=== PATIENT | female | born 1980 | race Caucasian/White ===

== ENCOUNTER 2017-02-26 10:57 | Emergency (ER) | payer OTHER ==
[2017-02-26 13:40] VITALS: BP 125/78
--- NOTE | 2017-02-26 14:28 | UC ---
Complaint Female HPI - HPI Summary HPI Summary: pt c/o of painful urination and pain with sexual intercourse. Pt is 11 weeks . Pt denies any vaginal bleeding, pelvic cramping, discharge or unusual odor. - History Of Current Complaint Chief Complaint: UCGU Stated Complaint: URINARY Time Seen by Provider: 02/26/17 13:55 Hx Obtained From: Patient Hx Last Menstrual Period: 08/17/16 ?: Yes Onset/Duration: Sudden Onset Timing: Intermittent Severity Initially: Mild Severity Currently: None Pain Intensity: 3 Pain Scale Used: 0-10 Numeric Character: Dull, Burning Aggravating Factor(s): [place], Urination Associated Signs And Symptoms: Positive: Negative - Allergies/Home Medications Allergies/Adverse Reactions: Allergies Allergy/AdvReac Type Severity Reaction Status Date / Time No Known Allergies Allergy Verified 02/26/17 13:40 Home Medications: Home Medications Famotidine TAB* [Pepcid 20 MG TAB*] 20 mg PO BID 02/26/17 [History Confirmed 08/06] Vit W/ Ferrous Fumara [ Complete 14-0.4 mg] 1 tab PO BEDTIME [History Confirmed 02/26/17] PMH/Surg Hx/FS Hx/Imm Hx Previously Healthy: Yes Endocrine History Of: Denies: Diabetes Cardiovascular History Of: Denies: Cardiac Disorders Respiratory History Of: Denies: Asthma GI/ History Of: Reports: Gastroesophageal Reflux Psychological History Of: Reports: Anxiety - Surgical History Surgical History: None - Family History Known Family History: Positive: Cardiac Disease Family History: no family history of clotting disorders, or DVT - Social History Alcohol Use: None Substance Use Type: None Smoking Status (MU): Heavy Every Day Tobacco Smoker Type: Cigarettes Amount Used/How Often: 1/2 PPD Length of Time of Smoking/Using Tobacco: 22 Years Have You Smoked in the Last Year: Yes Household Exposure Type: Cigarettes - Immunization History Most Recent Influenza Vaccination: none Hx Tetanus, Diphtheria Vaccination: Yes Vaccination Up to Date: Yes Review of Systems Constitutional: Negative Skin: Negative Eyes: Negative ENT: Negative Respiratory: Negative Cardiovascular: Negative Gastrointestinal: Negative Genitourinary: Dysuria Motor: Negative Neurovascular: Negative Musculoskeletal: Negative Neurological: Negative Psychological: Negative All Other Systems Reviewed And Are Negative: Yes Physical Exam Triage Information Reviewed: Yes Appearance: Well-Appearing Vital Signs: Initial Vital Signs Temp 98.6 F 02/26/17 13:33 Pulse 88 02/26/17 13:33 Resp 18 02/26/17 13:33 BP 125/78 02/26/17 13:33 Pulse Ox 100 02/26/17 13:33 Eye Exam: Normal ENT Exam: Normal Respiratory Exam: Normal Cardiovascular Exam: Normal Abdominal Exam: Normal Musculoskeletal Exam: Normal Neurological Exam: Normal Psychological Exam: Normal Skin Exam: Normal Complaint Female Dx - Differential Dx/Diagnosis Differential Diagnosis/HQI/PQRI: Sexually Transmitted Disease, Urinary Tract Infection Provider Diagnoses: dysuria Discharge - Discharge Plan Condition: Stable Disposition: HOME Patient Education Materials: Dysuria (ED) Referrals: Marlyn Driver MD [Primary Care Provider] - If Needed (Please follow up with your PCP or return to clinic as needed)
== END 2017-02-26 14:14 | disposition home or self-care (01) ==
LOC: UCCORT 10:57
DX: O26.891 Other specified pregnancy related conditions, first trimester (principal); R30.0 Dysuria; Z3A.11 11 weeks gestation of pregnancy; K21.9 Gastro-esophageal reflux disease without esophagitis; F41.8 Other specified anxiety disorders; F17.210 Nicotine dependence, cigarettes, uncomplicated
CPT/HCPCS: 81003; 99211; G0463

== ENCOUNTER 2017-04-23 21:00 | Emergency (ER) | payer OTHER ==
[2017-04-23 21:32] VITALS: BP 105/57
--- NOTE | 2017-04-23 21:54 | UC ---
Respiratory Complaint HPI - HPI Summary HPI Summary: "19 weeks . sx started x 1week ago, started off with cough, runny nose/ congestion, sore throat, headache. also reports rash on left upper arm x1 week" . 3rd . feels baby moving. no bleeding, spotting or cramping. Had nml US 2 days ago. Had pneumonia 2 yrs ago. doesnt feel that bad. has mild pain over forehead and around eyes x 3 days. does not feel that pain is as bad as previous sinus infection. occasional wheezing. - History of Current Complaint Chief Complaint: UCGeneralIllness Stated Complaint: COUGH,SORE THROAT,RASH () Time Seen by Provider: 04/23/17 21:43 Hx Last Menstrual Period: 08/17/16 - Allergies/Home Medications Allergies/Adverse Reactions: Allergies Allergy/AdvReac Type Severity Reaction Status Date / Time No Known Allergies Allergy Verified 04/23/17 21:32 Home Medications: Home Medications Acetaminophen [Eql Acetaminophen Extra] 500 mg PO ONCE 04/23/17 [History Confirmed 04/23/17] PMH/Surg Hx/FS Hx/Imm Hx Previously Healthy: Yes - - Surgical History Surgical History: None - Family History Known Family History: Positive: Cardiac Disease Negative: Respiratory Disease - no asthma Family History: no family history of clotting disorders, or DVT - Social History Alcohol Use: None Substance Use Type: None Smoking Status (MU): Light Every Day Tobacco Smoker Type: Cigarettes Amount Used/How Often: 1/2 PPD Length of Time of Smoking/Using Tobacco: 22 Years Have You Smoked in the Last Year: Yes Household Exposure Type: Cigarettes - Immunization History Most Recent Influenza Vaccination: none Hx Tetanus, Diphtheria Vaccination: Yes Vaccination Up to Date: Yes Review of Systems Constitutional: Negative Skin: Rash - left upper inner arm, mild. comes and goes. mildly itchy. no d/c. not painful. Eyes: Negative ENT: Nasal Discharge, Other - mild frontal pain x 3 days Respiratory: Cough Cardiovascular: Negative Gastrointestinal: Negative Genitourinary: Negative Motor: Negative Neurovascular: Negative Musculoskeletal: Negative Neurological: Negative Psychological: Negative All Other Systems Reviewed And Are Negative: Yes Physical Exam Triage Information Reviewed: Yes Appearance: Well-Appearing, No Pain Distress, Well-Nourished Vital Signs: Initial Vital Signs Temp 98.8 F 04/23/17 21:25 Pulse 96 04/23/17 21:25 Resp 17 04/23/17 21:25 BP 105/57 04/23/17 21:25 Pulse Ox 99 04/23/17 21:25 Vital Signs Reviewed: Yes Eye Exam: Normal ENT: Positive: Hearing grossly normal, Pharynx normal, Nasal congestion, TMs normal, Other: - no frontal or sinus tenderness. Negative: Tonsillar swelling, Tonsillar exudate, Muffled/hoarse voice Dental Exam: Normal Neck exam: Normal Neck: Positive: Supple, Nontender, No Lymphadenopathy Respiratory: Positive: Lungs clear, No respiratory distress, No accessory muscle use, Decreased breath sounds - mild b/l. Negative: Crackles, Rhonchi, Stridor, Wheezing Cardiovascular Exam: Normal Cardiovascular: Positive: RRR, No Murmur, Pulses Normal, Brisk Capillary Refill Abdomen Description: Positive: Nontender, Soft Musculoskeletal Exam: Normal Neurological Exam: Normal Psychological Exam: Normal Skin: Positive: rashes - left upper inner arm with very faint mild non blanching erythematous rash w/o discharge. no streaks, cool to touch. Diagnostic Evaluation - Laboratory O2 Sat by Pulse Oximetry: 99 Respiratory Course/Dx - Course Course Of Treatment: Bronchitis - albuterol prn (has used before) and we discussed side effect profile/risks. aquaphor tid to left arm, use OTC HC if not resolved. humidifier. Discussed limitations of OTC use of meds. plenty of fluids and rest. Should go to ER immediately with any abdominal cramping spotting bleeding. she understood me well and is very agreeable with plan. - Differential Dx/Diagnosis Differential Diagnosis/HQI/PQRI: Asthma, Bronchitis, Lower Resp Infection, Sinusitis Provider Diagnoses: Bronchitis, dermatitis. Discharge - Discharge Plan Condition: Stable Disposition: HOME Prescriptions: Albuterol HFA INHALER* [Ventolin HFA Inhaler*] 2 puff INH Q4H PRN #1 mdi PRN Reason: Cough Patient Education Materials: Acute Bronchitis (ED) Forms: *Work Release Referrals: Marlyn Driver MD [Primary Care Provider] - 3 Days
== END 2017-04-23 22:09 | disposition home or self-care (01) ==
LOC: UCCORT 21:00
DX: O26.892 Other specified pregnancy related conditions, second trimester (principal); J40 Bronchitis, not specified as acute or chronic; L30.9 Dermatitis, unspecified; Z3A.19 19 weeks gestation of pregnancy; F17.210 Nicotine dependence, cigarettes, uncomplicated
CPT/HCPCS: 87651; 99212; G0463

== ENCOUNTER 2017-07-26 17:11 | Emergency (ER) | payer SELFPAY ==
[2017-07-26 19:44] VITALS: BP 107/63
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
== END 2017-07-26 20:15 | disposition home or self-care (01) ==
LOC: UCCORT 17:11
DX: S63.501A Unspecified sprain of right wrist, initial encounter (principal); Z3A.33 33 weeks gestation of pregnancy; K21.9 Gastro-esophageal reflux disease without esophagitis; F17.210 Nicotine dependence, cigarettes, uncomplicated; Y08.89XA Assault by other specified means, initial encounter
CPT/HCPCS: 99212; G0463

== ENCOUNTER 2018-12-04 09:47 | Emergency (ER) | payer OTHER ==
[2018-12-04 10:19] VITALS: BP 118/76
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
== END 2018-12-04 10:56 | disposition home or self-care (01) ==
LOC: UCCORT 09:47
DX: S60.414A Abrasion of right ring finger, initial encounter (principal); S63.615A Unspecified sprain of left ring finger, initial encounter; Y04.8XXA Assault by other bodily force, initial encounter; Y93.89 Activity, other specified; Y92.9 Unspecified place or not applicable; K21.9 Gastro-esophageal reflux disease without esophagitis; F17.210 Nicotine dependence, cigarettes, uncomplicated
CPT/HCPCS: 73140; 99212; G0463

== ENCOUNTER 2018-12-29 14:37 | Emergency (ER) | payer OTHER ==
[2018-12-29 16:05] VITALS: BP 117/74
--- NOTE | 2018-12-29 16:24 | UC ---
UC General HPI - HPI Summary HPI Summary: vomiting and diarrhea x 2 days. starting to improve. no hx travel or recent antibiotic use. son has v/d as well. - History of Current Complaint Chief Complaint: UCGI Stated Complaint: VOMITTING,DIARRHEA X 2 DAYS Time Seen by Provider: 12/29/18 16:00 Hx Obtained From: Patient Hx Last Menstrual Period: unknown Pain Intensity: 0 Associated Signs & Symptoms: Negative: Abdominal Pain, Fever - Allergy/Home Medications Allergies/Adverse Reactions: Allergies Allergy/AdvReac Type Severity Reaction Status Date / Time No Known Allergies Allergy Verified 12/29/18 16:06 Home Medications: Home Medications Etonogestrel [Nexplanon] 68 mg SQ DAILY 12/29/18 [History Confirmed 12/29/18] PMH/Surg Hx/FS Hx/Imm Hx Previously Healthy: Yes - Surgical History Surgical History: None - Family History Known Family History: Positive: Cardiac Disease Negative: Hypertension, Diabetes, Respiratory Disease - no asthma Family History: no family history of clotting disorders, or DVT - Social History Lives: With Family Alcohol Use: None Substance Use Type: None Smoking Status (MU): Heavy Every Day Tobacco Smoker Type: Cigarettes Amount Used/How Often: 1/2 PPD Length of Time of Smoking/Using Tobacco: 22 Years Have You Smoked in the Last Year: Yes Household Exposure Type: Cigarettes - Immunization History Most Recent Influenza Vaccination: none Hx Tetanus, Diphtheria Vaccination: Yes Vaccination Up to Date: Yes Review of Systems All Other Systems Reviewed And Are Negative: Yes Constitutional: Negative: Fever Skin: Positive: Negative Eyes: Positive: Negative ENT: Positive: Negative Respiratory: Positive: Negative Cardiovascular: Positive: Negative Gastrointestinal: Positive: Vomiting, Diarrhea, Nausea. Negative: Abdominal Pain Genitourinary: Positive: Negative Motor: Positive: Negative Neurovascular: Positive: Negative Musculoskeletal: Negative: Myalgia Neurological: Negative: Headache Psychological: Positive: Negative Is Patient Immunocompromised?: No Physical Exam Triage Information Reviewed: Yes Appearance: Well-Appearing Vital Signs: Initial Vital Signs Temp 98.8 F 12/29/18 16:02 Pulse 87 12/29/18 16:02 Resp 16 12/29/18 16:02 BP 117/74 12/29/18 16:02 Pulse Ox 97 12/29/18 16:02 Vital Signs Reviewed: Yes Eyes: Positive: Conjunctiva Clear ENT: Positive: Pharynx normal, TMs normal. Negative: Nasal congestion, Nasal drainage Neck: Positive: Supple, Nontender, No Lymphadenopathy Respiratory: Positive: Lungs clear, Normal breath sounds, No respiratory distress Cardiovascular: Positive: RRR Abdomen Description: Positive: Nontender, No Organomegaly, Soft. Negative: Distended, Guarding Bowel Sounds: Positive: Present Musculoskeletal: Positive: ROM Intact Neurological: Positive: Alert Psychological: Positive: Age Appropriate Behavior Skin Exam: Normal Diagnostics - Laboratory Diagnostic Studies Completed/Ordered: rapid flu=negative Course/Dx - Differential Dx - Multi-Symptom Differential Diagnoses: Other - viral syndrom, influenza, gastroenteritis - Diagnoses Provider Diagnosis: Vomiting and diarrhea Discharge - Sign-Out/Discharge Documenting (check all that apply): Patient Departure All imaging exams completed and their final reports reviewed: No Studies - Discharge Plan Condition: Stable Disposition: HOME Patient Education Materials: Acute Nausea and Vomiting (ED), Acute Diarrhea (ED ) Referrals: Kim Santoro PA [Primary Care Provider] - 5 Days - Billing Disposition and Condition Condition: STABLE Disposition: Home
[2018-12-29 16:48] LABS: Influenza A Molecular NEGATIVE (Negative); Influenza B Molecular NEGATIVE (Negative)
== END 2018-12-29 17:04 | disposition home or self-care (01) ==
LOC: UCCORT 14:37
DX: R11.2 Nausea with vomiting, unspecified (principal); R19.7 Diarrhea, unspecified; F17.210 Nicotine dependence, cigarettes, uncomplicated
CPT/HCPCS: 99211; G0463

== ENCOUNTER 2019-09-12 08:19 | Emergency (ER) | payer OTHER ==
--- OUTSIDE RECORDS SUMMARY | 2019-09-12 08:31 | XMS REPORT | Continuity of Care Document ---
:1980 External Reference #:[id number] Author Name Kim Santoro PA Address [address] [place] [address] Care Team Providers Name Role Phone Kim Santoro PA - Medical Care Team Information Appraisal Specialist [phone] Problems Active Problems Provider Date Sprain of ankle Maycol Rg M.D. Onset: 07/28/2016 Chest pain Maycol Rg M.D. Onset: 09/01/2016 H/O: hematuria Nicholas Nick, REFERENCE ASSISTANT Onset: 11/17/2016 Social History Type Date Description Comments Sex Unknown Tobacco Use Start: Unknown Light tobacco smoker (10 or fewer Trying to quit cigarettes/day) Smoking Status Reviewed: 08/02/19 Light tobacco smoker (10 or fewer Trying to quit cigarettes/day) ETOH Use Denies alcohol use ETOH Use Has consumed alcohol in the past Tobacco Use Start: Unknown Light tobacco smoker (10 or fewer cigarettes/day) Tattoo/Piercing Pierced Labia Allergies, Adverse Reactions, Alerts Description No Known Drug Allergies Medications Active Medications SIG Qnty Indications Ordering Date Provider Naproxen 1 tab by mouth 60tabs M79.672 Meredith Chance, 08/02/2019 250mg Tablets twice a day Cetirizine HCL take 1 tablet by 30tabs R09.81 Meredith Chance, 05/03/2019 10mg mouth once daily MD Tablets if needed Omeprazole take 1 capsule 30caps Meredith Chance, 10/31/2018 20mg Capsules by mouth once MD DR daily Nexplanon Due to remove Meredith Chance, 11/30/2017 68mg Implant Nov 30, 2020 Ibuprofen 200 Take 3 tablets 200tabs Shaunna Wolfe CNM 09/19/2017 200mg by mouth every 6 Tablets hours with food or milk as needed for pain Acetaminophen Extra 1-2X'S/Day prn Unknown Strength Pain/Fever 500mg Tablets Escitalopram Oxalate take 1 tablet by 30tabs F32.9 Meredith Chance, 20mg mouth once daily MD Tablets O90.6 Immunizations CPT Code Status Date Vaccine Lot # [id number] Given 04/19/2019 Hepatitis B Vaccine Adult [id number] Given 11/23/2018 Hepatitis B Vaccine Adult [id number] Given 10/19/2018 Hepatitis B Vaccine Adult [id number] 08961 Given 10/19/2018 MMR Vaccine, Live, For Subcutaneous Use [id number] 06658 Given 10/19/2018 Influenza Virus Vaccine, Quadrivalent, 36 Mos+, [id number] .[id number] Q2038 Given 07/27/2017 Influenza Vaccine (Fluzone) Age 3 And Older [id number] 39292 Given 07/27/2017 Tdap injection [id number] 14029 Given 11/10/2016 Influenza Virus Vaccine Split Virus Use For [id number] Individual 3Yr Older Q2038 Given 09/08/2015 Influenza Vaccine (Fluzone) Age 3 And Older [id number] 00253 Given 09/08/2015 Pneumovax Injection [id number] 61635 Given 08/11/2014 flu vaccination 80961 Given 12/17/2010 flu vaccination 04450 Given 07/29/2009 flu vaccination Vital Signs Date Vital Result Comment 08/02/2019 1:05pm BP Systolic 114 mmHg BP Diastolic 72 mmHg Body Temperature 99.2 F Heart Rate 81 /min Respiratory Rate 18 /min Height 69 inches 5'9" Weight 220.38 lb BMI (Body Mass Index) 32.5 kg/m2 BSA (Body Surface Area) 2.15 m2 [place] body weight in kilograms 66 kg O2 % BldC Oximetry 97 % 04/26/2019 12:59pm BP Systolic 124 mmHg BP Diastolic 70 mmHg Body Temperature 98.6 F Heart Rate 111 /min Weight 210.00 lb O2 % BldC Oximetry 96 % Results Test Date Facility Test Result H/L Range Note LDL Cholesterol 07/18/[address] [facility] [address] Cholesterol 170 mg/dL <200 1, 2 Profile [address] [place] [address] [phone] Triglycerides 96 mg/dL <150 3 HDL Cholesterol 36 mg/dL Low >40 4 LDL-Cholesterol 115 mg/dL < 100 5 Reflex add FT3? Y Reflex add FT4? Y Comprehensive 07/18/[address] Glucose 92 mg/dL Normal 74-106 Metabolic Panel [address] [place] [address] [phone] BUN 13 mg/dL Normal 7-18 Creatinine 0.8 mg/dL Normal 0.6-1.3 Glom Filtration Rate, Estimate >60 mL/min >60 If >60 mL/min >60 6 BUN/Creat 16.2 ratio Sodium 141 mmol/L Normal 136-145 Potassium 4.0 mmol/L Normal 3.5-5.1 Chloride 113 mmol/L High 98-107 Carbon Dioxide 27 mmol/L Normal 21-32 Anion Gap 1 mEq/L Low 8-16 Calcium 8.1 mg/dL Low 8.5-10.1 Total Protein 7.2 g/dL Normal 6.4-8.2 Albumin 3.3 g/dL Low 3.4-5.0 Globulin 3.9 g/dL Normal 1.9-4.3 Alb/Glob 0.8 ratio Bilirubin,Total 0.2 mg/dL Normal 0.2-1.0 Sgot/Ast 8 U/L Low 15-37 7 SGPT/Alt 15 U/L Normal 12-78 Alkaline Phosphatase 85 U/L Normal 45-117 Reflex add FT3? Y Reflex add FT4? Y CBC W/Automated 07/18/[address] White Blood 8.5 K/uL Normal 3.1-10.7 Diff [address] [facility] [place], [place] [id number] [phone] Red Blood Count 4.67 M/uL Normal 3.90-5.40 Hemoglobin 13.7 gm/dL Normal 11.6-15.8 Hematocrit 40.7 % Normal 36.0-46.1 Mean Cell Volume 87.2 fl Normal 80.9-99.0 Mean Corpuscular HGB 29.3 pg Normal 25.9-32.7 Mean Corpuscular HGB Conc 33.7 g/dL Normal 30.8-34.3 Platelet Count 324 K/uL Normal 155-360 Red Cell Distri Width SD 41.7 fl Normal 36-47 Red Cell Distri Width %CV 13.2 % Normal 11.7-14.4 Mean Platelet Volume 9.5 fl Normal 8.9-12.4 Neut% 53.2 % Normal 40.4-72.8 Lymph % 34.5 % Normal 20.0-42.0 Howell % 8.5 % Normal 4.3-13.2 Eo% 2.5 % Normal 0.0-6.6 Bas% 0.9 % Normal 0.0-1.1 Immature Grans 0.4 % Normal 0.0-5.0 NRBC % 0.0 /100WBC < 10/ 100 WBC Neut# 4.53 K/uL Normal 1.8-7.0 Lymph # 2.93 K/uL Normal 1.0-4.0 Howell # 0.72 K/uL Normal 0.3-0.9 Eos # 0.21 K/uL Normal 0.0-0.5 Baso # 0.08 K/uL Normal 0.0-0.1 Immature Grans Absolute 0.03 K/uL NRBC # 0.00 K/uL TSH Reflex 07/18/[address] Thyroid Stim 4.22 uIU/mL High 0.30 -4.20 FT4 And/Or [address] [facility] Hormone FT3 [place] [address] [phone] Reflex add FT3? Y Reflex add FT4? Y Free T3 07/18/[address] Free T3 2.51 pg/mL Normal 2.18-3.[address] [place] [address] [phone] Reflex add FT3? Y Reflex add FT4? Y Free T4 07/18/[address] Free T4 0.62 ng/dL Low 0.76-1.[address] [place] [address] [phone] Reflex add FT3? Y Reflex add FT4? Y 1 Z13.220 F32.9 2 Reference Guidelines*: Desirable: ........... < 200 mg/dL Borderline High: ..... 200-239 mg/dL High: ................ >= 240 mg/dL * The National Cholesterol Education Program (NCEP) 3 Reference Guidelines*: Normal: ............. < 150 mg/dL Borderline High: .... 150-199 mg/dL High: ............... 200-499 mg/dL Very High: .......... > 500 mg/dL * Source: National Cholesterol Education Program (NCEP) 4 Reference Guidelines*: Low HDL: ..... < 40 mg/dL Normal: ..... 40-60 mg/dL Desirable: ... > 60 mg/dL *The National Cholesterol Education Program(NCEP) 5 Reference Guidelines*: Optimal:........... <100 mg/dL Near Optimal....... 100-129 mg/dL Borderline High.... 130-159 mg/dL High............... 160-189 mg/dL Very High.......... >=190 mg/dL * Source: National Cholesterol Education Program (NCEP) 6 Note: Persistent reduction for 3 months or more in an eGFR <60 mL/min/1.73 m2 defines CKD. Patients with eGFR values >/=60 mL/min/1.73 m2 may also have CKD if evidence of persistent proteinuria is present. The original MDRD equation for estimated GFR is not valid for patients less than 18 years of age. Additional information may be found at www.kdoqi.org. 7 Values below the stated reference ranges of AST and ALT can be seen in normal populations. Clinical correlation is suggested. Procedures Date Code Description Status 04/26/2019 05167 Brief Emotional/Behav Assessment W/ Scoring Doc Per Completed Standard Inst Medical Devices Description No Information Available Encounters Type Date Location Provider Dx Diagnosis Office Visit 04/26/2019 Family Medicine Kim Santoro PA Z00.01 Encounter for 1:00p [facility] general adult medical exam w abnormal findings F32.9 Major depressive disorder, single episode, unspecified Z13.220 Encounter for screening for lipoid disorders S63.631A Sprain of interphalangeal joint of left index finger, init Z71.6 Tobacco abuse counseling Assessments Date Code Description Provider 08/02/2019 F32.9 Major depressive disorder, single episode, Kim Santoro PA unspecified 08/02/2019 M79.672 Pain in left foot Kim Santoro PA 08/02/2019 M77.11 Lateral epicondylitis, right elbow Kim Santoro PA 08/02/2019 R94.6 Abnormal results of thyroid function studies Kim Santoro PA 08/02/2019 Z71.6 Tobacco abuse counseling Kim Santoro PA 04/26/2019 Z00.01 Encounter for general adult medical Kim Santoro PA examination with abnorma 04/26/2019 F32.9 Major depressive disorder, single episode, Kim Santoro PA unspecified 04/26/2019 Z13.220 Encounter for screening for lipoid disorders Kim Santoro PA 04/26/2019 S63.631A Sprain of interphalangeal joint of left index Kim Santoro PA finger, initia 04/26/2019 Z71.6 Tobacco abuse counseling Kim Santoro PA 04/19/2019 Z23 Encounter for immunization Meredith Chance MD 04/19/2019 Z23 Encounter for immunization Family Nurse Plan of Treatment Future Appointment(s):10/25/2019 1:15 pm - Kim Santoro PA at [facility]08/02/2019 - Kim Santoro, PAF32.9 Major depressive disorder, single episode, unspecifiedFollow up:3 ejhpfjK54.672 Pain in left footNew Medication:Naproxen 250 mg - 1 tab by mouth twice a dayComments:Wear a supportive shoe. Use the Naprosyn twice daily. Call if symptoms do not improve./ M77.11 Lateral epicondylitis, right elbowComments:Apply moist heat. Massage, Stretch as instructed. Apply cold pack after activity. Call if sy do not improve. Use the Naprosyn twice daily for 2 weeks.R94.6 Abnormal results of thyroid function studiesNew Labs:Anti-Thyroid Antibodies Screen, Scheduled: 12/08Free T3, Scheduled: 08/20/19Free T4, Scheduled: 08/20/19Thyroid Stim Hormone, Scheduled: 08/20/19Comments:TSH mildly elevated with a low T4. Repeat thyroid studies in August. Order has been sent to the labat our office.Z71.6 Tobacco abuse counselingComments:Try to cut down by 1 cigarette a week! You can do this. Functional Status Description No Information Available Mental Status Description No Information Available Referrals Refer to Reason for Referral Status Appt Date Stanley Beck MD Injury to Left hand w suspected tendon Scheduled 2018 avulsion at the DIP of the 4th finger. [address] [place] [address] [phone]
[2019-09-12 08:47] VITALS: BP 114/76
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
== END 2019-09-12 10:07 | disposition home or self-care (01) ==
LOC: UCCORT 08:19
DX: S93.402A Sprain of unspecified ligament of left ankle, initial encounter (principal); F17.210 Nicotine dependence, cigarettes, uncomplicated; Y04.0XXA Assault by unarmed brawl or fight, initial encounter; Y92.9 Unspecified place or not applicable; Y99.0 Civilian activity done for income or pay
CPT/HCPCS: 99213; G0463